=== PATIENT | male | born 1975 | race African-American/Black ===

== ENCOUNTER 2016-09-01 18:55 | Emergency (ER) | payer OTHER ==
[2016-09-01 19:09] VITALS: BP 120/74; PULSE 89; TEMP 98.2; BMI 24.6
[2016-09-01] MEDS ORDERED: predniSONE 20 MG TABLET (UD) PO ONE (19:32)
[2016-09-01] MEDS ORDERED: diphenhydrAMINE HCL 25 MG CAPSULE (FP) PO ONE (19:36)
[2016-09-01] MEDS ORDERED: predniSONE 20 MG TABLET (UD) ONE (19:37)
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
== END 2016-09-01 20:21 | disposition home or self-care (01) ==
LOC: JERFT 18:55
PROC: 3E023GC Introduction of Other Therapeutic Substance into Muscle, Percutaneous Approach (ICD-10-PCS; principal; 2016-09-01)
DX: L50.0 Allergic urticaria (principal); T36.0X5A Adverse effect of penicillins, initial encounter; Y92.038 Other place in apartment as the place of occurrence of the external cause
CPT/HCPCS: 99281-25

== ENCOUNTER 2023-11-23 10:39 | Inpatient (IN) | payer OTHER ==
[2023-11-23 11:16] VITALS: BMI 30.8
[2023-11-23] MEDS ORDERED: IBUPROFEN 400 MG TABLET (FP) PO PRN (11:54)
[2023-11-23] MEDS ORDERED: BENZOCAINE/MENTHOL (CHLORASEPTIC ) LOZENGE MM PRN (11:54)
[2023-11-23] MEDS ORDERED: LOPERAMIDE HCL 2 MG CAPSULE PO PRN (11:54)
[2023-11-23] MEDS ORDERED: POLYETHYLENE GLYCOL (HEALTHYLAX) 3350 17 GM PACKET PO PRN (11:54)
[2023-11-23] MEDS ORDERED: NALOXONE HCL 0.4 MG/ML VIAL IM PRN (11:54)
[2023-11-23] MEDS ORDERED: MAG HYDROX/AL HYDROX/SIMETH 30 ML UNIT-DOSE CUP PO PRN (11:54)
[2023-11-23] MEDS ORDERED: guaiFENesin 600 MG TABLET.ER (FP) PO PRN (11:54)
[2023-11-23] MEDS ORDERED: hydrOXYzine PAMOATE 25 MG CAPSULE (FP) PO PRN (11:54)
[2023-11-23] MEDS ORDERED: BENZONATATE 200 MG CAPSULE PO PRN (11:54)
[2023-11-23] MEDS ORDERED: MAGNESIUM HYDROX 2400MG/30ML ORAL SUSPENSION 30 ML CUP PO PRN (11:54)
[2023-11-23] MEDS ORDERED: NICOTINE POLACRILEX 2 MG GUM BUC PRN (11:54)
[2023-11-23] MEDS ORDERED: NALOXONE HCL (KLOXXADO) 8 MG SPRAY NS PRN (11:54)
[2023-11-23] MEDS: TUBERCULIN PPD 5 TU/0.1ML SYRINGE (IN PATIENT USE ONLY) ID ONE (12:58)
[2023-11-23] MEDS: ACETAMINOPHEN 325 MG TABLET (FP) PO PRN (16:00)
[2023-11-23] MEDS: IBUPROFEN 600 MG TABLET (FP) PO PRN (17:29)
[2023-11-23] MEDS: QUEtiapine FUMARATE 50 MG TABLET PO SCH (21:17)
[2023-11-23] MEDS: THIAMINE HCL 100 MG TABLET (FP) PO SCH (21:17)
[2023-11-23] MEDS: MELATONIN 5 MG TABLETS PO SCH (21:17)
[2023-11-24 07:07] VITALS: BP 131/73; PULSE 70; RESP 16; TEMP 98.7
[2023-11-24] MEDS ORDERED: PRENATAL VITAMINS W/ FOLIC ACID TABLET (FP) PO SCH (10:00)
[2023-11-24] MEDS ORDERED: NICOTINE 7 MG/24 HOURS TOPICAL PATCH TD PRN (11:54)
[2023-11-24 12:18] LABS: HEMATOCRIT 41.4 % (35.4-49); HEMOGLOBIN 13.8 GM/dL (11.7-16.9); MCH 32.4 pg (25.7-33.7); MCHC 33.4 g/dl (32.0-35.9); MEAN CELL VOLUME 97.1 fl (80-96); MEAN PLT VOLUME 7.8 fl (7.5-11.1); PLATELET COUNT 243 10^3/uL (134-434); RBC 4.27 M/mm3 (4.00-5.60); RDW 12.5 % (11.9-15.9); WHITE BLOOD COUNT 3.2 K/mm3 (4.0-10.0)
[2023-11-24 12:37] LABS: SYPHILIS W/ RPR CONF NON-REACTIVE (NONREACTIVE)
[2023-11-24 13:22] LABS: POTASSIUM 4.2 mmol/L (3.5-5.1)
[2023-11-24 13:52] LABS: ALBUMIN 3.5 g/dl (3.4-5.0); BLOOD UREA NITROGEN 7.9 mg/dL (7-18); CALCIUM 9.1 mg/dL (8.5-10.1); CREATININE 0.9 mg/dL (0.55-1.3)
[2023-11-24 13:53] LABS: TOT PROT 6.6 g/dl (6.4-8.2)
[2023-11-24 13:54] LABS: BILIRUBIN,TOTAL 0.5 mg/dL (0.2-1)
== END 2023-11-24 08:15 | disposition left against medical advice (07) | DRG 894 ==
LOC: YASAS 10:39 → Y3NR 12:07
PROVIDERS: ADMIT Allergy & Immunology; ATTEND Psychiatry & Neurology Pain Medicine
PROC: HZ42ZZZ Group Counseling for Substance Abuse Treatment, Cognitive-Behavioral (ICD-10-PCS; principal; 2023-11-23)
DX: F10.20 Alcohol dependence, uncomplicated (principal); F14.20 Cocaine dependence, uncomplicated; F12.20 Cannabis dependence, uncomplicated; F17.210 Nicotine dependence, cigarettes, uncomplicated; F25.9 Schizoaffective disorder, unspecified; F43.10 Post-traumatic stress disorder, unspecified; G47.00 Insomnia, unspecified; Z86.39 Personal history of other endocrine, nutritional and metabolic disease; Z88.0 Allergy status to penicillin; Z88.8 Allergy status to other drugs, medicaments and biological substances
CPT/HCPCS: 36415; 80053; 80305; 80307; 82140; 83036; 85027; 86780; 86803; 87811

== ENCOUNTER 2024-09-02 01:57 | Emergency (ER) | payer OTHER ==
[2024-09-02 02:31] VITALS: BP 134/78; PULSE 98; RESP 18; TEMP 97.7; BMI 24.9
[2024-09-02] MEDS ORDERED: IBUPROFEN 600 MG TABLET (FP) PO ONE (03:09)
[2024-09-02] MEDS: IBUPROFEN 600 MG TABLET (FP) PO ONE (03:18)
[2024-09-02 04:58] LABS: HIV INTERPRETATION NEGATIVE (NEGATIVE)
== END 2024-09-02 03:40 | disposition home or self-care (01) ==
LOC: JER 01:57
DX: Z76.0 Encounter for issue of repeat prescription (principal)
CPT/HCPCS: 36415; 86803; 87389; 99283-25